=== PATIENT | female | born 2000 | race Caucasian/White ===

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

== ENCOUNTER 2018-01-12 19:00 | Emergency (ER) | payer OTHER ==
--- NOTE | 2018-01-12 19:12 | UC ---
Complaint Female HPI - HPI Summary HPI Summary: 18 y/o female presents to the urgent care c/o pelvic pain at times w/ movement and frequency and hesitancy on urination for the past 2 days. Pt reports she has taken Motrin w/o any improvement. She saw this morning a pink color when she wipe herself. LMP: 12/24/2017 w/ regular menstrual cycles. Pain is sharp 8/ 10 w/ movement w/o any radiation and it last for a few seconds. Pt denies pain now. She has IUD and is sexually active. Pt denies Hx of STD's. Pt had UTI in the past. Pt denies fever, lower back pain, flank pain, abdominal pain, N/V/D. [facility] and all [facility]. - History Of Current Complaint Stated Complaint: PELVIC PAIN, BLOOD IN URINE Time Seen by Provider: 01/12/18 19:09 Hx Obtained From: Patient Onset/Duration: Gradual Onset, Lasting Days - 2 days, Still Present Timing: Intermittent - sharp suprapubic pain, Lasting Seconds Severity Initially: Mild Severity Currently: Moderate Pain Intensity: 8 Pain Scale Used: 0-10 Numeric Character: Sharp, Colicy Aggravating Factor(s): Movement, Urination - urgency and frequency Alleviating Factor(s): Nothing Associated Signs And Symptoms: Positive: Negative. Negative: Fever, Back Pain, Vaginal Bleeding/Discharge, Vaginal Discharge, Nausea, Vomiting(# Of Episodes =) , Genital Swelling, Genital Blisters - Risk Factors Ectopic Risk Factor: Negative Ovarian Torsion Risk Factor: Negative - Allergies/Home Medications Allergies/Adverse Reactions: Allergies Allergy/AdvReac Type Severity Reaction Status Date / Time Sulfa (Sulfonamide Allergy Hives Verified 01/12/18 19:16 Antibiotics) PMH/Surg Hx/FS Hx/Imm Hx Previously Healthy: Yes Psychological History: Anxiety, Depression - Surgical History Surgical History: None - Family History Known Family History: Positive: Renal Disease - kidney stones Negative: Cardiac Disease, Hypertension - Social History Occupation: Student Lives: With Family Alcohol Use: None Substance Use Type: None Substance Use Comment - Amount & Last Used: unknown Smoking Status (MU): Never Smoked Tobacco - Immunization History Most Recent Influenza Vaccination: Unknown Most Recent Tetanus Shot: Unknown Most Recent Pneumonia Vaccination: Unknown Vaccination Up to Date: Yes Review of Systems Constitutional: Negative Skin: Negative Eyes: Negative ENT: Negative Respiratory: Negative Cardiovascular: Negative Gastrointestinal: Negative Genitourinary: Dysuria, Hematuria, Frequency, Urgency, Other - pelvic pain Motor: Negative Neurovascular: Negative Musculoskeletal: Negative Neurological: Negative Psychological: Negative Is Patient Immunocompromised?: No All Other Systems Reviewed And Are Negative: Yes Physical Exam - Summary Physical Exam Summary: PHYSICAL EXAMINATION: Vital signs: reviewed General: well developed, well nourished female adolescent sitting in the examining table w/o any acute distress. Head: Normocephalic, no lesions. Eyes: PERRLA, EOM's full, conjunctiva clear, fundi grossly normal. Ears: EAC's clear, TM's normal. Nose: Mucosa normal, no obstruction. Throat: Clear, no exudates, no lesions. Neck: Supple, no masses, no thyromegaly, no bruits. Chest: Lungs clear, no rales, no rhonchi, no wheezes. Heart: RR, no murmurs, no rubs, no gallops. Abdomen: Soft, no tenderness, no masses, BS normal. : Normal, no lesions, no discharge, no hernias noted. Pelvic: External genitalia within normal limits. There is no lesions there is no masses noted. Speculum exam: The vaginal beaulieu are within normal limits w/ normal clear vaginal discharge, no the lesions or rashes. The cervix is closed with no lesions or masses. There is no CMT's, and no adnexal masses. Sample sent to Lab for G/C and Affirm panel. Rectal: No lesions, no hemorrhoids, Back: Normal curvature, no tenderness. Extremities: FROM, no deformities, no edema, no erythema. Neuro: Physiological, no localizing findings. Skin: Normal, no rashes, no lesions noted. Triage Information Reviewed: Yes Complaint Female Dx - Course Course Of Treatment: 18 y/o female presents to the urgent care c/o pelvic pain at times w/ movement and frequency and hesitancy on urination for the past 2 days. Pt reports she has taken Motrin w/o any improvement. She saw this morning a pink color when she wipe herself. LMP: 12/24/2017 w/ regular menstrual cycles. Pain is sharp 8/10 w/ movement w/o any radiation and it last for a few seconds. Pt denies pain now. She has IUD and is sexually active. Pt denies Hx of STD's. Pt had UTI in the past. Pt denies fever, lower back pain, flank pain, abdominal pain, N/V/D. [facility] and all [facility]. Hx obtained. - Differential Dx/Diagnosis Differential Diagnosis/HQI/PQRI: Cervicitis, Pelvic Inflammatory Disease, , Renal Colic, Sexually Transmitted Disease, Ureteral Stone, Urinary Tract Infection Discharge - Sign-Out/Discharge Documenting (check all that apply): Patient Departure - D/C home All imaging exams completed and their final reports reviewed: No Studies - Discharge Plan Condition: Stable Disposition: HOME Prescriptions: Ibuprofen TAB* [Motrin TAB* 600 MG] 600 mg PO Q6H PRN #30 tab PRN Reason: pelvic pain Patient Education Materials: Dysfunctional Uterine Bleeding (ED) Referrals: [facility] - [place] [Primary Care Provider] - 3 Days Pamela James MD [Medical Doctor] - If Needed Additional Instructions: 1- Urine and test: negative 1- Your symptoms may be due to disregulation of your hormones. If your Menstrual period continue to be irregular please f/u w/ your DONOR CENTER TECHNICIAN or with DONOR CENTER TECHNICIAN Dr James for further evaluation and treatment 2- Please take Ibuprofen PO q6-8hrs after meals to alleviate symptoms. 4- If you develop severe pelvic pain w/ vaginal bleeding please go immediately to the ER for further management - Billing Disposition and Condition Condition: STABLE Disposition: Home
[2018-01-12 19:16] VITALS: BP 102/61
--- NOTE | 2018-01-14 19:35 | UC ---
- Progress Note Progress Note: neg gardnerella, neg bita, neg trich in Discharge - Sign-Out/Discharge Documenting (check all that apply): Post-Discharge Follow Up All imaging exams completed and their final reports reviewed: No Studies - Discharge Plan Condition: Stable Disposition: HOME Prescriptions: Ibuprofen TAB* [Motrin TAB* 600 MG] 600 mg PO Q6H PRN #30 tab PRN Reason: pelvic pain Patient Education Materials: Dysfunctional Uterine Bleeding (ED) Referrals: [facility] - [place] [Primary Care Provider] - 3 Days Pamela James MD [Medical Doctor] - If Needed Additional Instructions: 1- Urine and test: negative 1- Your symptoms may be due to disregulation of your hormones. If your Menstrual period continue to be irregular please f/u w/ your DRESSAGE INSTRUCTOR or with DRESSAGE INSTRUCTOR Dr James for further evaluation and treatment 2- Please take Ibuprofen PO q6-8hrs after meals to alleviate symptoms. 4- If you develop severe pelvic pain w/ vaginal bleeding please go immediately to the ER for further management - Billing Disposition and Condition Condition: STABLE Disposition: Home
== END 2018-01-12 20:15 | disposition home or self-care (01) ==
LOC: UCEAST 19:00
DX: N93.8 Other specified abnormal uterine and vaginal bleeding (principal); Z32.02 Encounter for pregnancy test, result negative; Z87.440 Personal history of urinary (tract) infections; Z88.2 Allergy status to sulfonamides
CPT/HCPCS: 81003; 84702; 87480; 87510; 87660; 99212; G0463